=== PATIENT | female | born 1965 | race Two or more races ===

== ENCOUNTER → 2023-06-26 | Emergency (ER) | payer OTHER ==
[~2023-06-26] VITALS: Ht 165.1 cm; Wt 67.1 kg
[~2023-06-26] MED LIST: BENADRYL25 MG PO; LOSARTAN POTAS100 MG PO; LOSARTAN POTASS25 MG PO; NIFEDIPINE20 MG PO; TRAMADOL HCL50 MG PO
== END | disposition home or self-care (01) ==
LOC: ER 15:30
DX: M75.31 Calcific tendinitis of right shoulder (principal); I10 Essential (primary) hypertension; Z88.6 Allergy status to analgesic agent